=== PATIENT | female | born 1995 | race Two or more races ===

== ENCOUNTER → 2024-12-25 | Outpatient (CLI) | payer MEDICAID, SELFPAY ==
[2024-12-24 16:34] LABS: HCG Qualitative,Urine Negative
--- NOTE | 2024-12-25 09:15 | XR_ITS ---
Examination: MRI of brain without intravenous contrast. MRI brain with intravenous contrast. Date and time of exam:December 25, 2024 10:00 AM Comparison May 22, 2024 INDICATIONS: Conductive hearing loss, chronic otitis media right ear right ear pain 10 years increasing in severity the last year Technique: Multiple axial and sagittal images of the brain to been obtained. Siemens high-resolution 1.52 Ilene short bore scanner utilized. Sagittal sections, T1 weighted images, TR 500, TE 14, are performed. Axial sections proton-density and T2-weighted images have been obtained. Inversion recovery axial images, TR 9260, TE 111, TR 2500. Diffusion weighted images, axial sections, TR 4800, TE 128, B value 1000. Axial sections, ADC map, TR 4800, TE 128. Axial and coronal images were also obtained post 20 cc gadolinium administered intravenously. Findings:: Enlargement of the sella turcica is not present. The optic chiasm and infundibular stalk are not remarkable. There is no localized enlargement of the medulla or astrid. Fourth ventricle and cerebellar tonsils appear normal in position. No subacute area of hemorrhage density is seen. Fourth ventricle is midline. Mass in the cerebellopontine angle region is not evident. 7th and 8th nerve complexes exhibit symmetry Globes are symmetrical Orbital musculature including medial lateral rectus muscles do not exhibit abnormality Increased white matter signal is not seen Mild right mastoiditis Effacement of the cortical sulcal markings is not identified. Mass effect upon the ventricular system is not identified. Diffusion-weighted images demonstrate no focus of restricted diffusion Contrast images demonstrate no abnormal enhancement Impression: Negative for acute hemorrhage mass effect or midline shift No acute infarct Mild right mastoiditis No abnormal enhancing cerebellar or cerebral lesions, no enhancing acoustic neurinoma noted Given the patient's presentation, consider CT scan middle inner ear without contrast follow-up
== END | disposition home or self-care (01) ==
LOC: SMRI 09:12
PROVIDERS: PCP Family Medicine; Referring Provider Nurse Practitioner Family; Visit Provider Nurse Practitioner Family
DX: H70.91 Unspecified mastoiditis, right ear (principal); Z32.00 Encounter for pregnancy test, result unknown
CPT/HCPCS: 70553; 81025; A9579

== ENCOUNTER 2025-06-19 05:11 | Emergency (ER) | payer MEDICAID, SELFPAY ==
[2025-06-19 05:13] VITALS: BMI 37.0
[2025-06-19 05:16] VITALS: BMI 37.0
[2025-06-19 05:17] VITALS: BP 154/109; PULSE 79; RESP 19; TEMP 36.8; O2SAT 98
--- NOTE | 2025-06-19 05:22 | XR_ITS ---
Examination: CT abdomen with intravenous contrast CT pelvis with intravenous contrast 2-D coronal reconstructions 2-D sagittal reconstructions Date and time of exam: June 19, 2025, 1001 hours INDICATIONS: Lower abdominal pain beginning last night. CTDI: vol (mGy) 12.3 DLP: (mGycm) 708 Technique: Multiple axial sections of the abdomen and pelvis have been obtained. 64 slice high-resolution scanner used. 3 mm axial sections have been obtained, post intravenous injection 60 cc Isovue-370 2-D sagittal, coronal reconstructions obtained. Low dose protocols were performed. One or more of the following dose reduction techniques were used; automated exposure control, adjustment of the mA and/or KV according to patient size, use of iterative reconstruction technique. Findings: No focal liver or splenic lesions Absent gallbladder No extrahepatic biliary tract dilatation No pancreatic or adrenal mass 2 mm right renal calculus Mild right hydronephrosis secondary to 2 mm proximal right ureteral calculus Normal appendix No pelvic mass No bladder mass or bladder calculi Intact osseous structures IMPRESSION: Mild right hydronephrosis secondary to 2 mm proximal right ureteral calculus
--- NOTE | 2025-06-19 05:23 | PD.EDRME ---
Rapid Medical Screening Exam [facility] Arrival date/time: 06/19/25 05:11 30F with history of cholecystectomy presents to ED with 1 day of RLQ/pelvic pain and N/V. Patient denies diarrhea, dysuria/hematuria, and is not on her cycle. Chief Complaint: Abdominal Pain Vital signs: Vital Signs Temperature 98.2 F 06/19/25 05:17 Pulse Rate 79 06/19/25 05:17 Respiratory Rate 19 06/19/25 05:17 Blood Pressure 154/109 H 06/19/25 05:17 Pulse Oximetry (%) 98 06/19/25 05:17 Exam: RLQ/pelvic tenderness. Patient appears to be a bit diaphoretic. Clinical Impression: kidney stone vs appy vs torsion vs ovarian cyst vs UTI/pylo vs ab/pelvic pain
[2025-06-19] MEDS: ONDANSETRON INJ 2 MG/ML INJ 2 ML 4 MG IV (05:37)
[2025-06-19] MEDS: MORPHINE SULF INJ 4 MG/ML VIAL IV (05:37)
[2025-06-19 05:46] LABS: Basophils # (Auto) 0.1 Thou/mm3 (0.0-0.2); Basophils % (Auto) 1 % (0-2.5); Eosinophils # (Auto) 0.2 Thou/mm3 (0.0-0.5); Eosinophils % (Auto) 2 % (0-10); Hematocrit 38.2 % (36.0-46.0); Hemoglobin 12.2 g/dL (12.0-16.0); Immature Granulocytes Auto 0.05 Thou/mm3 (0.00-0.00); Lymphocytes # (Auto) 2.4 Thou/mm3 (1.0-4.8); Lymphocytes % (Auto) 17 % (10-50); Mean Corpuscular HGB Conc 31.9 g/dl (31.0-37.0); Mean Corpuscular Hemoglobin 24.1 pg (25.0-35.0); Mean Corpuscular Volume 76 fL (80-100); Monocytes # (Auto) 0.6 Thou/mm3 (0.0-0.8); Monocytes % (Auto) 4 % (0-12); Neutrophils # (Auto) 10.9 Thou/mm3 (1.8-7.7); Neutrophils % (Auto) 76 % (37-80); Nucleated Red Blood Cell # 0.00 Thou/mm3 (0.00-0.00); Nucleated Red Blood Cell % 0 /100 WBC (0); Platelet Count 255 Thou/mm3 (140-440); RDW Standard Deviation 46.2 fL (36.4-46.3); Red Blood Count 5.06 Miln/mm3 (4.00-5.20); White Blood Count 14.3 Thou/mm3 (3.6-11.0)
[2025-06-19 05:57] LABS: Alanine Aminotransferase 21 U/L (10-49); Albumin, Serum 4.9 gm/dL (3.5-5.0); Albumin/Globulin Ratio 1.8 (1.2-2.2); Alkaline Phosphatase 82 U/L (46-116); Anion Gap 12 (7-16); Aspartate Amino Transferase 23 U/L (0-34); BUN/Creatinine Ratio 11 Ratio (12-20); Bilirubin,Total 0.2 mg/dL (0.3-1.2); Blood Urea Nitrogen 12 mg/dL (9-23); Calcium 9.5 mg/dL (8.3-10.6); Calcium (Corrected) 9.5 mg/dL (8.5-10.1); Carbon Dioxide 19.9 mMol/L (20.0-31.0); Chloride 109 mMol/L (98-107); Creatinine (Component) 1.1 mg/dL (0.6-1.3); Estimated Creatinine Clearance 88.9 mL/min (>60); Globulin 2.7 gm/dL (2.3-3.5); Glucose 123 mg/dL (74-106); Lipase 41 U/L (12-53); Osmolality,Calculated 281 (275-295); Potassium 4.3 mMol/L (3.4-5.1); Sodium 141 mMol/L (136-145); Total Protein 7.6 gm/dL (5.7-8.2); eGFR > 60 See Note
[2025-06-19 06:24] VITALS: BP 130/100; PULSE 70; RESP 20; TEMP 36.8; O2SAT 96
[2025-06-19] MEDS: HYDROmorphone INJ 2 MG/ML VIAL 0.5 MG IVP (07:00)
--- NOTE | 2025-06-19 07:30 | PD.EDABDPN ---
ED Abdominal Pain RME/HPI General Chief Complaint: Abdominal Pain Stated complaint: RIGHT LOWER ABD PAIN,N/V Time seen by provider: 06/19/25 05:42 Arrival date/time: 06/19/25 05:11 Limitations: no limitations RME / HPI RME / HPI narrative: 06/19/25 05:11 30F with history of cholecystectomy presents to ED with 1 day of RLQ/pelvic pain and N/V. Patient denies diarrhea, dysuria/hematuria, and is not on her cycle. DR. ORVILLE GIBBS ED EVALUATION: 30-year-old female with history of cholecystectomy presents to the Emergency Department with complaint of right lower quadrant and pelvic pain for 1 day associated with nausea and vomiting. She denies diarrhea, dysuria, hematuria, or other symptoms at this time. She reports she is not currently on her menstrual cycle. Home medications include Junel contraceptive and omeprazole. Related Data Home Medications ?Medication ?Instructions ?Recorded ?Confirmed norethindrone acetate 1.5 1 tab PO QDAY 06/20/23 06/20/23 mg-ethinyl estradiol 30 mcg tablet (Junel) omeprazole 20 mg capsule,delayed 20 mg PO QDAY 06/20/23 06/20/23 release Previous Rx's ?Medication ?Instructions ?Recorded hydrocodone 5 mg-acetaminophen 325 1 tab PO Q6H PRN pain #14 tabs 06/19/25 mg tablet sulfamethoxazole 800 1 tab PO QDAY 7 days #7 tabs 06/19/25 mg-trimethoprim 160 mg tablet (Bactrim DS) Allergies Allergy/AdvReac Type Severity Reaction Status Date / Time No Known Allergies Allergy Verified 06/19/25 05:12 Review of Systems Review of Systems Systems Reviewed: All systems reviewed, normal except as documented Past Medical History Past Medical History GASTROINTESTINAL: Positive Gastrointestinal Disorders, Gall Bladder Disease and Obesity Social History SMOKING STATUS: Never smoker ED Exam General Limitations: Present no limitations General appearance: Present alert, in no apparent distress and other (slightly diaphoretic) Head Head exam: Present atraumatic, normocephalic and normal inspection Eye Eye exam: Present normal appearance, PERRL and EOMI ENT ENT exam: Present normal exam, normal oropharynx and mucous membranes moist Neck Neck exam: Present normal inspection, full ROM and trachea midline Chest Chest inspection: Present normal inspection and symmetric chest wall rise Respiratory Respiratory exam: Present normal lung sounds bilaterally Cardiovascular Cardiovascular exam: Present regular rate, normal rhythm and normal heart sounds Abdominal Exam Abdominal exam: Present soft, tenderness (RLQ and pelvic tenderness present) and normal bowel sounds Extremities Exam Extremities exam: Present normal inspection and full ROM Back Exam Back exam: Present normal inspection and full ROM Neurological Exam Neurological exam: Present alert, oriented X3 and CN II-XII intact Psychiatric Psychiatric exam: Present normal affect and normal mood Skin Skin exam: Present warm, intact, normal color and diaphoresis (slightly diaphoretic) Course Quality Measures none Orders Category Date Time Status CT Screening NOW Care 06/19/25 05:22 Completed Insert IV NOW Care 06/19/25 05:22 Completed Miscellaneous Nursing Order NOW Care 06/19/25 06:[address] abdomen pelvis w con Stat Exams 06/19/25 05:22 Completed CBC Stat Lab 06/19/25 05:29 Completed CMP [Comprehensive Metabolic Panel] Stat Lab 06/19/25 05:29 Completed Drug Screen,Urine Stat Lab 06/19/25 08:36 Completed HCG Qualitative,Urine Stat Lab 06/19/25 08:36 Completed Lipase Stat Lab 06/19/25 05:29 Completed Urinalysis, C/S if Indicated Stat Lab 06/19/25 08:36 Completed Urine Culture Stat Lab 06/19/25 08:36 Received HYDROmorphone INJ [Dilaudid Inj] Med 06/19/25 06:55 Discontinued 0.5 mg IVP X1 ONE Morphine* Inj Med 06/19/25 05:22 Discontinued 4 mg IV X1 ONE Ondansetron Inj [Zofran Inj] Med 06/19/25 05:22 Discontinued 4 mg IV X1 ONE Vital Signs Vital signs: Vital Signs Temperature 98.2 F 06/19/25 05:17 Pulse Rate 79 06/19/25 05:17 Respiratory Rate 19 06/19/25 05:17 Blood Pressure 154/109 H 06/19/25 05:17 Pulse Oximetry (%) 98 06/19/25 05:17 Abdominal Pain MDM MDM Narrative MDM Narrative:: I, Tere Vaca am scribing for and in the presence of Dr. Al. Patient here for right lower quadrant and pelvic pain. with nausea and vomiting. Workup initiated for appendicitis versus gynecologic pathology. Imaging and labs ordered. Differentials include ovarian torsion, appendicitis, and ruptured ovarian cyst. Patient signed out to Dr. Agosto at 830 AM, pending CT and labs. Patient data External records reviewed:: [facility] previous records Clinical information provided by:: patient Social determinants that could affect healthcare access:: none Patient has the following chronic illnesses:: Cholecystectomy. Home medications include Junel contraceptive and omeprazole. How is presenting disease/condition affected by chronic disease/condition?: uneffected by Evaluation data The following diagnostics were reviewed and interpreted by me:: lab results and radiology exam(s) Lab and/or radiology exams considered but not ordered:: none Interpretation Summary: Pending at sign out. Medications / Prescriptions Medications or Prescriptions considered but not ordered:: none Medication administrations:: Medication Administration History Discontinued Medications Hydromorphone HCl (Hydromorphone Inj 2 Mg/Ml Vial) 0.5 mg IVP X1 ONE Stop: 06/19/25 06:56 Last Admin: 06/19/25 07:00 Dose: 0.5 mg Documented By: DAVY Morphine Sulfate (Morphine Sulf Inj 4 Mg/Ml Vial) 4 mg IV X1 ONE Stop: 06/19/25 05:23 Last Admin: 06/19/25 05:37 Dose: 4 mg Documented By: DAVY Ondansetron HCl (Ondansetron Inj 2 Mg/Ml Inj 2 Ml) 4 mg IV X1 ONE; Protocol Stop: 06/19/25 05:23 Last Admin: 06/19/25 05:37 Dose: 4 mg Documented By: DAVY see above Consultations Consultation(s) initiated? (list below): No Diagnosis Differential diagnosis abdominal pain: other (ovarian torsion, appendicitis, and ruptured ovarian cyst) Most likely diagnosis given after review of the tests above:: See below under clinical impression Admission Indicated Admission indicated?: not indicated Admission Request Was there a request for admission?: No Disposition Plan Disposition Plan: other (specify) (Patient signed out to Dr. Agosto at 830 AM.) Discharge Plan Plan Patient Disposition: HOME (Self Care) Patient condition on transfer: Stable Prescriptions/Referrals Prescriptions/Med Rec: New hydrocodone-acetaminophen 5-325 mg tablet 1 tab PO Q6H MDD 4 PRN (Reason: pain) Qty: 14 0RF sulfamethoxazole-trimethoprim [Bactrim DS] 800-160 mg tablet 1 tab PO QDAY 7 Days Qty: 7 0RF No Action norethindrone ac-eth estradiol [Junel (21)] 1.5-30 mg-mcg Tablet 1 tab PO QDAY omeprazole 20 mg Capsule,Delayed Release(Dr/Ec) 20 mg PO QDAY Referrals: Nathan Mcclellan MD [Primary Care Provider, Family Practice] - In 1 week Problem List Clinical Impression: Kidney stone on right side Patient/Caregiver Discharge Instructions Discharge Activity: activity as tolerated Education Materials: ED Kidney Stone w/ Colic Additional Instructions: Follow-up with your doctor next week regarding your kidney stone. Take medications as directed. Print Language: Nepali Stand Alone Forms: [facility] Award Info., Patient Portal Info Letter
[2025-06-19 07:48] VITALS: BP 139/98; PULSE 73; RESP 18; TEMP 36.8; O2SAT 97
[2025-06-19 08:43] LABS: Collection Type, Urine Clean Catch
[2025-06-19 09:19] LABS: Amphetamine/Methamp Scrn,U Negative (Negative); Barbiturate Screen,Urine Negative (Negative); Benzodiazepines Screen,Urine Negative (Negative); Benzoylecgonine Screen, Ur Negative (Negative); Fentanyl Screen,Urine Negative (Negative); Opiate Screen,Urine Positive (Negative); THC Screen,Urine Negative (Negative)
[2025-06-19 09:25] LABS: Bilirubin,Urine Negative (Negative); Blood,Urine 3+ (Negative); Clarity,Urine Turbid (Clear/Hazy); Color,Urine Yellow (Lt Yel-Yel); Glucose, Urine Negative (Negative); Ketones,Urine Trace (Negative); Leukocyte Esterase,Urine Positive (Negative); Nitrite,Urine Negative (Negative); PH,Urine 6.0 (5.0-7.0); Protein,Urine 1+ (Neg - Trace); RBC,Urine 574 /hpf (0-3); Specific Gravity,Urine 1.032 (1.001-1.035); Squamous Epithelial Cell,Urine 2 /hpf (0-5); Urobilinogen,Urine Negative mg/dL (0.0-1.0); WBC,Urine 14 /hpf (0-5)
[2025-06-19 09:27] LABS: Culture Indicated,Urine Yes; HCG Qualitative,Urine Negative
--- NOTE | 2025-06-19 10:08 | EDNOTE_ITS ---
Emergency Room Addendum Addendum Narrative: 0830: Care assumed from Dr. Al the previous shift emergency physician. Past medical, surgical, social and family history reviewed. Vitals and home medications reviewed. I will assume the care of the patient at this time, pending CT and labs. Please refer to the emergency department record for history and examination from initial visit.? Physical exam by me shows patient under no acute distress at this time. 1307: Patient will be discharged for mild right hydro and right kidney stone. Results Objective Laboratory: Laboratory Last Values WBC 14.3 Thou/mm3 (3.6-11.0) H 06/19/25 05:29 RBC 5.06 Miln/mm3 (4.00-5.20) 06/19/25 05:29 Hgb 12.2 g/dL (12.0-16.0) 06/19/25 05:29 Hct 38.2 % (36.0-46.0) 06/19/25 05:29 MCV 76 fL (80-100) L 06/19/25 05:29 MCH 24.1 pg (25.0-35.0) L 06/19/25 05:29 MCHC 31.9 g/dl (31.0-37.0) 06/19/25 05:29 RDW Std Deviation 46.2 fL (36.4-46.3) 06/19/25 05:29 Plt Count 255 Thou/mm3 (140-440) 06/19/25 05:29 Neut % (Auto) 76 % (37-80) 06/19/25 05:29 Lymph % (Auto) 17 % (10-50) 06/19/25 05:29 [place] % (Auto) 4 % (0-12) 06/19/25 05:29 Eos % (Auto) 2 % (0-10) 06/19/25 05:29 Baso % (Auto) 1 % (0-2.5) 06/19/25 05:29 Neut # (Auto) 10.9 Thou/mm3 (1.8-7.7) H 06/19/25 05:29 Lymph # (Auto) 2.4 Thou/mm3 (1.0-4.8) 06/19/25 05:29 [place] # (Auto) 0.6 Thou/mm3 (0.0-0.8) 06/19/25 05:29 Eos # (Auto) 0.2 Thou/mm3 (0.0-0.5) 06/19/25 05:29 Baso # (Auto) 0.1 Thou/mm3 (0.0-0.2) 06/19/25 05:29 Immature Gran # (Auto) 0.05 Thou/mm3 (0.00-0.00) H 06/19/25 05:29 Absolute Nucleated RBC 0.00 Thou/mm3 (0.00-0.00) 06/19/25 05:29 Immature Gran % 0 % (0-0) 06/19/25 05:29 Nucleated RBC % 0 /100 WBC (0) 06/19/25 05:29 Sodium 141 mMol/L (136-145) 06/19/25 05:29 Potassium 4.3 mMol/L (3.4-5.1) 06/19/25 05:29 Chloride 109 mMol/L (98-107) H 06/19/25 05:29 Carbon Dioxide 19.9 mMol/L (20.0-31.0) L 06/19/25 05:29 Anion Gap 12 (7-16) 06/19/25 05:29 BUN 12 mg/dL (9-23) 06/19/25 05:29 Creatinine 1.1 mg/dL (0.6-1.3) 06/19/25 05:29 Estim Creat Clear Calc 88.9 mL/min (>60) 06/19/25 05:29 eGFR > 60 See Note (60-) 06/19/25 05:29 BUN/Creatinine Ratio 11 Ratio (12-20) L 06/19/25 05:29 Glucose 123 mg/dL (74-106) H 06/19/25 05:29 Calculated Osmolality 281 (275-295) 06/19/25 05:29 Calcium 9.5 mg/dL (8.3-10.6) 06/19/25 05:29 Corrected Calcium 9.5 mg/dL (8.5-10.1) 06/19/25 05:29 Total Bilirubin 0.2 mg/dL (0.3-1.2) L 06/19/25 05:29 AST 23 U/L (0-34) 06/19/25 05:29 ALT 21 U/L (10-49) 06/19/25 05:29 Alkaline Phosphatase 82 U/L (46-116) 06/19/25 05:29 Total Protein 7.6 gm/dL (5.7-8.2) 06/19/25 05:29 Albumin 4.9 gm/dL (3.5-5.0) 06/19/25 05:29 Globulin 2.7 gm/dL (2.3-3.5) 06/19/25 05:29 Albumin/Globulin Ratio 1.8 (1.2-2.2) 06/19/25 05:29 Lipase 41 U/L (12-53) 06/19/25 05:29 Ur Collection Type Clean Catch 06/19/25 08:36 Urine Color Yellow (Lt Yel-Yel) 06/19/25 08:36 Urine Clarity Turbid (Clear/Hazy) A 06/19/25 08:36 Urine pH 6.0 (5.0-7.0) 06/19/25 08:36 Ur Specific [place] 1.032 (1.001-1.035) 06/19/25 08:36 Urine Protein 1+ (Neg - Trace) A 06/19/25 08:36 Urine Glucose (UA) Negative (Negative) 06/19/25 08:36 Urine Ketones Trace (Negative) 06/19/25 08:36 Urine Blood 3+ (Negative) A 06/19/25 08:36 Urine Nitrite Negative (Negative) 06/19/25 08:36 Urine Bilirubin Negative (Negative) 06/19/25 08:36 Urine Urobilinogen (Auto) Negative mg/dL (0.0-1.0) 06/19/25 08:36 Ur Leukocyte Esterase Positive (Negative) 06/19/25 08:36 Urine RBC 574 /hpf (0-3) H 06/19/25 08:36 Urine WBC 14 /hpf (0-5) H 06/19/25 08:36 Ur Squamous Epith Cells 2 /hpf (0-5) 06/19/25 08:36 Urine Bacteria None (None) 06/19/25 08:36 Ur Culture Indicated? Yes 06/19/25 08:36 Urine HCG, Qual Negative 06/19/25 08:36 Urine Opiates Screen Positive (Negative) A 06/19/25 08:36 Urine Fentanyl Screen Negative (Negative) 06/19/25 08:36 Ur Barbiturates Screen Negative (Negative) 06/19/25 08:36 U Amphetamin/Meth Scrn Negative (Negative) 06/19/25 08:36 U Benzodiazepines Scrn Negative (Negative) 06/19/25 08:36 U Cocaine Metab Screen Negative (Negative) 06/19/25 08:36 U Marijuana (THC) Screen Negative (Negative) 06/19/25 08:36 Imaging: Procedure(s): CT abdomen pelvis w con Accession Number(s): [id number] cc: Nathan Mcclellan MD; Luis Angel Roa MD; Rogerio Ybarra PA-C~ Examination: CT abdomen with intravenous contrast CT pelvis with intravenous contrast 2-D coronal reconstructions 2-D sagittal reconstructions Date and time of exam: June 19, 2025, 1001 hours INDICATIONS: Lower abdominal pain beginning last night. CTDI: vol (mGy) 12.3 DLP: (mGycm) 708 Technique: Multiple axial sections of the abdomen and pelvis have been obtained. 64 slice high-resolution scanner used. 3 mm axial sections have been obtained, post intravenous injection 60 cc Isovue-370 2-D sagittal, coronal reconstructions obtained. Low dose protocols were performed. One or more of the following dose reduction techniques were used; automated exposure control, adjustment of the mA and/or KV according to patient size, use of iterative reconstruction technique. Findings: No focal liver or splenic lesions Absent gallbladder No extrahepatic biliary tract dilatation No pancreatic or adrenal mass 2 mm right renal calculus Mild right hydronephrosis secondary to 2 mm proximal right ureteral calculus Normal appendix No pelvic mass No bladder mass or bladder calculi Intact osseous structures IMPRESSION: Mild right hydronephrosis secondary to 2 mm proximal right ureteral calculus Dictated By: Luis Angel Roa MD
[2025-06-19 10:41] VITALS: BP 139/98; PULSE 84; RESP 18; TEMP 37; O2SAT 95
[2025-06-19 12:51] VITALS: BP 136/86; PULSE 100; RESP 18; TEMP 36.9; O2SAT 98
== END 2025-06-19 12:59 | disposition home or self-care (01) ==
PROVIDERS: Physician Assistant; Emergency Provider Family Medicine; PCP Family Medicine
DX: N13.2 Hydronephrosis with renal and ureteral calculous obstruction (principal)
CPT/HCPCS: 36415; 74177; 80053; 80307; 81001; 81025; 83690; 85025; 87086; 96374; 96375; 99283; A4649; J1171; J2270; J2405; Q9967